=== PATIENT | female | born 1970 | race Two or more races ===

== ENCOUNTER → 2018-09-27 | Emergency (ER) | payer OTHER ==
[~2018-09-27] VITALS: Ht 170.2 cm; Wt 86.2 kg
[~2018-09-27] MED LIST: ABILIFY10 MG; ADERAL; CLONAZEPAM0.125 MG/T; CLONAZEPAM1 MG/TAB; CLONAZEPAM2 MG PO; CREON DR 36,001 EACH; CYMBALTA60 MG; DOLOGESIC 500-1 EACH; FIORICET 50-321 EACH; KEFLEX500 MG PO; KETO10TA2 PO; KLONOPIN2 MG/TAB; LIDODERM30 EA TP; LYRICA50 MG; NABUMETONE500 MG PO; NEURONTIN300 MG; PANADOL EXTRA500 MG; PERCOCET 5/3251 TAB PO; PROTONIX40 MG; SEPTRA DS TABLE1 TAB PO; TRAMADOL HCL50 MG PO; WELLBUTRIN SR150 MG; ZANTAC300 MG; ZOFRAN4 MG PO
== END | disposition home or self-care (01) ==
LOC: ER 03:55
DX: N39.0 Urinary tract infection, site not specified (principal)

== ENCOUNTER 2019-02-24 00:57 | Emergency (ER) | payer OTHER ==
[~2019-02-24] VITALS: Ht 170.2 cm; Wt 86.2 kg
[2019-02-24] MEDS ORDERED: ZANAFLEX4 M1 PO (01:19)
[2019-02-24] MEDS ORDERED: LIPITOR20 MG PO (01:23)
[2019-02-24] MEDS ORDERED: VITAMIN D250000 UNIT PO (01:23)
[2019-02-24] MEDS ORDERED: SKELAXIN800 MG PO (02:10)
[2019-02-24] MEDS ORDERED: KETO10TA2 PO (02:10)
[2019-02-24] MEDS ORDERED: TORADOL60 MG IM (02:56)
== END 2019-02-24 03:03 | disposition home or self-care (01) ==
LOC: ER 00:57
DX: M62.838 Other muscle spasm (principal)

== ENCOUNTER 2019-03-06 19:59 | Emergency (ER) | payer OTHER ==
[~2019-03-06] VITALS: Ht 170.2 cm; Wt 77.1 kg
[~2019-03-06 19:59] MED LIST changes: +LIPITOR20 MG PO; +SKELAXIN800 MG PO; +TORADOL60 MG IM; +VITAMIN D250000 UNIT PO; +ZANAFLEX4 M1 PO
[2019-03-07] MEDS ORDERED: PROTONIX40 MG PO (05:31)
[2019-03-07] MEDS ORDERED: CEFUROXIME500 MG PO (05:31)
[2019-03-07] MEDS ORDERED: ZOFRAN ODT4 MG PO (05:31)
== END 2019-03-07 06:00 | disposition home or self-care (01) ==
LOC: ER 19:59
DX: N39.0 Urinary tract infection, site not specified (principal)

== ENCOUNTER 2019-03-25 16:07 | Emergency (ER) | payer OTHER ==
[~2019-03-25] VITALS: Ht 170.2 cm; Wt 68.0 kg
[~2019-03-25 16:07] MED LIST changes: +CEFUROXIME500 MG PO; +PROTONIX40 MG PO; +ZOFRAN ODT4 MG PO
[2019-03-25] MEDS ORDERED: LIPITOR20 MG (16:28)
[2019-03-25] MEDS ORDERED: VITAMIN D10000 UNIT (16:29)
== END 2019-03-25 22:41 | disposition home or self-care (01) ==
LOC: ER 16:07
DX: N39.0 Urinary tract infection, site not specified (principal); R10.2 Pelvic and perineal pain

== ENCOUNTER 2019-04-02 18:58 | Emergency (ER) | payer OTHER ==
[~2019-04-02] VITALS: Ht 170.2 cm; Wt 81.6 kg
[~2019-04-02 18:58] MED LIST changes: +LIPITOR20 MG; +VITAMIN D10000 UNIT
[2019-04-03] MEDS ORDERED: NUCYNTA50 MG PO (01:55)
[2019-04-03] MEDS ORDERED: TORADOL60 MG IM (01:55)
== END 2019-04-03 01:31 | disposition home or self-care (01) ==
LOC: ER 18:58
DX: N30.80 Other cystitis without hematuria (principal); B96.89 Other specified bacterial agents as the cause of diseases classified elsewhere

== ENCOUNTER 2020-12-21 02:27 | Emergency (ER) | payer OTHER ==
[~2020-12-21] VITALS: Ht 170.2 cm; Wt 90.7 kg
[~2020-12-21 02:27] MED LIST changes: +NUCYNTA50 MG PO
[2020-12-21] MEDS ORDERED: KETO10TA2 PO (05:35)
[2020-12-21] MEDS ORDERED: DUI500 PO (05:35)
== END 2020-12-21 06:44 | disposition home or self-care (01) ==
LOC: ER 02:27
DX: R30.0 Dysuria (principal)

== ENCOUNTER 2024-06-02 18:44 | Emergency (ER) | payer OTHER ==
[~2024-06-02] VITALS: Ht 170.2 cm; Wt 90.7 kg
[~2024-06-02 18:44] MED LIST changes: +CREON DR 36,001 EACH PO; +DUI500 PO
[2024-06-02] MEDS ORDERED: KETOROLAC TROMETHAMINE 15 MG VIAL IV ONE ×2 (19:45→21:45)
[2024-06-02] MEDS ORDERED: 0.9 % SODIUM CHLORIDE 1,000 ML IV ONE (19:45)
[2024-06-02 20:46] LABS: HEMATOCRIT 34.8 % (36.0-45.00); HEMOGLOBIN 11.2 g/dL (12.0-15.00); MEAN CELL VOLUME 76.1 fL (80.00-100.00); MEAN CORPUSCULAR HEMOGLOBIN 24.4 pg (27.00-32.0); PLATELET COUNT 219 K/uL (150-450); RED BLOOD COUNT 4.58 M/uL (4.00-6.00)
[2024-06-02 21:01] LABS: RED CELL DISTRIBUTION WIDTH 22.7 % (11.5-14.5)
[2024-06-02 21:18] LABS: PARTIAL THROMBOPLASTIN TIME 25.5 SECONDS (22.0-34.0); PROTHROMBIN TIME 10.5 SECONDS (9.0-11.5)
[2024-06-02 21:27] LABS: ALBUMIN 3.5 gm/dL (3.4-5.0); BILIRUBIN TOTAL 0.24 mg/dL (0.3-1.2); CALCIUM 9.5 mg/dL (8.5-10.1); CREATININE SERUM 0.82 mg/dL (0.55-1.02); GFR 72.92; GLOBULINA 4.2 G/DL (2.4-3.5); POTASSIUM 4.31 mEq/L (3.5-5.1); TOTAL PROTEIN 7.7 gm/dL (6.4-8.2)
[2024-06-02 22:33] LABS: PH,URINE 5.5 (5.0-8.0); URINE APPEARANCE Cloudy; URINE BILIRRUBIN Negative (NEGATIVE); URINE BLOOD Negative; URINE COLOR Yellow; URINE GLUCOSE Negative (NEGATIVE); URINE LEUKOCYTE Small; URINE NITRATE Negative; URINE PROTEIN Negative (NEGATIVE); URINE UROBILINOGEN 0.2 E.U./dl
[2024-06-02 22:37] LABS: URINE BACTERIA 2979.8 uL (0.0-1933); URINE EPITHELIAL CELLS 108.3 uL (0.0-38.8); URINE RBC 62.7 uL (0.0-20.8); URINE WBC 69.7 uL (0.0-23.2)
[2024-06-02 22:47] LABS: URINE YEAST MODERATE /hpf
[2024-06-02] MEDS ORDERED: HYOSCYAMINE SULFATE 0.125 MG TAB.SUBL SL ONE (23:15)
[2024-06-02] MEDS ORDERED: PROMETHAZINE HCL 25 MG/ML AMPUL IM ONE (23:45)
[2024-06-02] MEDS ORDERED: MEPERIDINE HCL/PF 50 MG/ML VIAL IM ONE (23:45)
== END 2024-06-03 01:30 | disposition home or self-care (01) ==
LOC: ER 18:45
PROVIDERS: General Practice
DX: R10.9 Unspecified abdominal pain (principal); Z88.8 Allergy status to other drugs, medicaments and biological substances
CPT/HCPCS: 36415; 74177; 96365; 96366; 96372; 99284; J1885; J2250; J7030; Q9965

== ENCOUNTER 2024-07-06 07:56 | Emergency (ER) | payer OTHER ==
[~2024-07-06] VITALS: Ht 170.2 cm; Wt 104.3 kg
[2024-07-06] MEDS ORDERED: PEPCID AC20 MG (08:14)
[2024-07-06] MEDS ORDERED: SUMATRIPTAN SUCCINATE 6 MG/0.5 ML VIAL SUBCUTANEO STA (10:41)
[2024-07-06 10:48] LABS: HEMATOCRIT 38.5 % (36.0-45.00); HEMOGLOBIN 12.4 g/dL (12.0-15.00); MEAN CELL VOLUME 78.6 fL (80.00-100.00); MEAN CORPUSCULAR HEMOGLOBIN 25.3 pg (27.00-32.0); MEAN CORPUSCULAR HGB CONC 32.1 g/dl (32.0-36.0); PLATELET COUNT 232 K/uL (150-450); RED CELL DISTRIBUTION WIDTH 22.6 % (11.5-14.5)
[2024-07-06] MEDS ORDERED: SUMATRIPTAN SUCCINATE 6 MG/0.5 ML VIAL SUBCUTANEO ONE (10:50)
[2024-07-06 11:00] LABS: CALCIUM 9.6 mg/dL (8.5-10.1); CREATININE SERUM 0.93 mg/dL (0.55-1.02); GFR 63.06; POTASSIUM 4.67 mEq/L (3.5-5.1)
== END 2024-07-06 14:18 | disposition home or self-care (01) ==
LOC: ER 07:57
PROVIDERS: General Practice
DX: R42 Dizziness and giddiness (principal); R51.9 Headache, unspecified; Z88.6 Allergy status to analgesic agent

== ENCOUNTER → 2024-12-17 | Emergency (ER) | payer OTHER ==
[~2024-12-17] VITALS: Ht 167.6 cm; Wt 131.5 kg
[~2024-12-17] MED LIST changes: +PEPCID AC20 MG
== END | disposition left against medical advice (07) ==
LOC: ER 22:23
DX: Z53.21 Procedure and treatment not carried out due to patient leaving prior to being seen by health care provider (principal)

== ENCOUNTER 2025-02-07 14:48 | Outpatient (CLI) | payer OTHER | END 2025-02-07 14:52 | disposition home or self-care (01) | LOC: RAD 14:48 | PROVIDERS: ATTEND Orthopaedic Surgery | DX: M79.672 Pain in left foot (principal); M25.572 Pain in left ankle and joints of left foot ==

== ENCOUNTER 2025-02-11 14:17 | Outpatient (CLI) | payer OTHER | END 2025-02-11 14:26 | disposition home or self-care (01) | LOC: TOM 14:17 | PROVIDERS: ATTEND Orthopaedic Surgery | DX: S92.352A Displaced fracture of fifth metatarsal bone, left foot, initial encounter for closed fracture (principal) ==